=== PATIENT | male | born 1965 | race Caucasian/White ===

== ENCOUNTER 2022-05-06 10:23 | Emergency (ER) | payer OTHER, SELFPAY ==
[2022-05-06 11:35] VITALS: BP 178/85; PULSE 71; RESP 18; TEMP 36.6; O2SAT 96; BMI 33.5
--- NOTE | 2022-05-06 11:49 | DI.RAD.S_ITS ---
PROCEDURE: XR ANKLE RT MIN 3V INDICATIONS: trip/twist/pop TECHNIQUE: 3 views of the ankle were acquired. COMPARISON: None. FINDINGS: Bones: No fractures or dislocations. Ankle mortise is normally aligned. No suspicious bony lesions. Soft tissues: No tibiotalar joint effusion. Achilles tendon appears normal. Lateral soft tissue swelling IMPRESSION: Soft tissue swelling without fracture or foreign body Approved by: Montez Pope M.D. on 05/06/2022 at 11:33
[2022-05-06] MEDS: ACETAMINOPHEN 325 MG TABLET 650 MG PO (14:04)
[2022-05-06] MEDS: HYDROCODONE/ACET 5/325 TABLET 1 TAB PO (14:04)
[2022-05-06] MEDS: KETOROLAC 30 MG/ML VIAL IM (14:05)
[2022-05-06 14:13] VITALS: BP 162/76; PULSE 71; RESP 18; O2SAT 97
--- NOTE | 2022-05-06 14:16 | ED_ITS ---
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 Denies any history of surgeries to this, denies any weakness but states it is painful to walk on. He is able to bear weight but states it is painful. States that he took 2 tabs of something prior to coming in but does not what it was. Denies history of diabetes, gout, denies any open wound, denies any sensation changes. Patient did not hit his head but states that he did fall down the ground. He endorses hearing a pop on the lateral aspect of his ankle but denies any point tenderness complains of generalized lateral tenderness he denies any pain, can flex and extend his knee without any complaint, nontender to palpation Related Data Home Medications Medication Instructions Recorded Confirmed ASPIRIN (Aspir-Low) 81 mg PO QDAY ##0 07/28/12 09/26/18 Previous Rx's Medication Instructions Recorded triamcinolone acetonide 0.5 % 1 applic topical TID #15 grams 01/18/22 topical ointment diclofenac sodium 1 % topical gel 2 g topical QID #100 grams 05/06/22 hydrocodone 5 mg-acetaminophen 325 1 tab PO BID PRN pain #10 tabs 05/06/22 mg tablet Allergies Allergy/AdvReac Type Severity Reaction Status Date / Time No Known Drug Allergies Allergy Verified 09/26/18 09:09 Review of Systems <MERI Brandon - Last Filed: 05/06/22 14:25> Review of Systems ROS Unobtainable: All systems reviewed & are unremarkable except as noted in HPI and below Patient History <MERI Brandon Last Filed: 05/06/22 14:25> Social History Smoking Status: Never smoker Smoking Status: Never smoker Exam <MERI Brandon - Last Filed: 05/06/22 14:25> Narrative Exam Narrative: Reviewed vitals signs and nursing notes. General: cooperative, comfortable, in no acute distress, well groomed MSK: moves all extremities, neurovascularly intact, no weakness, normal tone, edema surrounding the lateral malleolus of the right ankle, no tenderness over bilateral malleoli, tenderness over ATFL and CFL, without tenderness over Achilles tendon, dorsiflexion and plantar extension intact without deficit, PT, DP pulses are 2+, no open wound, no bony pain with axial load, negative Jefferson test, Patient was fitted in a walking boot, given crutches, he was able to ambulate without difficulty Skin: brisk capillary refill, without pallor or erythema Neuro: normal speech and cognition, A&O x3, clear speech Psych: mental status is grossly normal, congruent mood, normal affect, pleasant and cooperative Initial Vital Signs Initial Vital Signs: Vital Signs Temperature 97.9 F 05/06/22 11:35 Pulse Rate 71 05/06/22 11:35 Respiratory Rate 18 05/06/22 11:35 Blood Pressure 178/85 H 05/06/22 11:35 Pulse Oximetry 96 05/06/22 11:35 Oxygen Delivery Method 05/06/22 11:35 <Rosalia Ham MD - Last Filed: 05/06/22 18:56> Initial Vital Signs Initial Vital Signs: Vital Signs Temperature 97.9 F 05/06/22 11:35 Pulse Rate 71 05/06/22 11:35 Respiratory Rate 18 05/06/22 11:35 Blood Pressure 178/85 H 05/06/22 11:35 Pulse Oximetry 96 05/06/22 11:35 Oxygen Delivery Method 05/06/22 11:35 Course <MERI Brandon - Last Filed: 05/06/22 14:25> Orders Ordered: ED Orders 05/06/22 11:49 XR ankle RT min 3V Stat Discontinued Medications Acetaminophen (Acetaminophen 325 Mg Tablet) 650 mg PO NOW ONE Stop: 05/06/22 13:48 Last Admin: 05/06/22 14:04 Dose: 650 mg Documented By: ROSANGELA Hydrocodone Bitart/Acetaminophen (Hydrocodone/Acet 5/325 Tablet) 1 tab PO NOW ONE Stop: 05/06/22 13:48 Last Admin: 05/06/22 14:04 Dose: 1 tab Documented By: ROSANGELA Ketorolac Tromethamine (Ketorolac 30 Mg/Ml Vial) 30 mg IM NOW ONE Stop: 05/06/22 13:48 Last Admin: 05/06/22 14:05 Dose: 30 mg Documented By: ROSANGELA Vital Signs Vital signs: Vital Signs - 8 hr 05/06/22 11:35 05/06/22 14:13 Temperature 97.9 F Pulse Rate 71 71 Respiratory Rate 18 18 Blood Pressure 178/85 H 162/76 H Pulse Oximetry 96 97 Oxygen Delivery Method Room Air Room Air <Rosalia Ham MD - Last Filed: 05/06/22 18:56> Orders Ordered: ED Orders 05/06/22 11:49 XR ankle RT min 3V Stat Discontinued Medications Acetaminophen (Acetaminophen 325 Mg Tablet) 650 mg PO NOW ONE Stop: 05/06/22 13:48 Last Admin: 05/06/22 14:04 Dose: 650 mg Documented By: ROSANGELA Hydrocodone Bitart/Acetaminophen (Hydrocodone/Acet 5/325 Tablet) 1 tab PO NOW ONE Stop: 05/06/22 13:48 Last Admin: 05/06/22 14:04 Dose: 1 tab Documented By: ROSANGELA Ketorolac Tromethamine (Ketorolac 30 Mg/Ml Vial) 30 mg IM NOW ONE Stop: 05/06/22 13:48 Last Admin: 05/06/22 14:05 Dose: 30 mg Documented By: ROSANGELA Vital Signs Vital signs: Vital Signs - 8 hr 05/06/22 11:35 05/06/22 14:13 Temperature 97.9 F Pulse Rate 71 71 Respiratory Rate 18 18 Blood Pressure 178/85 H 162/76 H Pulse Oximetry 96 97 Oxygen Delivery Method Room Air Room Air MDM - Extremity Injury (Lower) <MERI Brandon - Last Filed: 05/06/22 14:25> Imaging Data Extremity x-ray #1: Radiologist's Impression: PROCEDURE:? XR ANKLE RT MIN 3V ? INDICATIONS:? trip/twist/pop ? TECHNIQUE:? 3 views of the ankle were acquired.? ? COMPARISON:? None. ? FINDINGS:? ? Bones:? No fractures or dislocations.? Ankle mortise is normally aligned.? No suspicious bony lesions.? ? Soft tissues:? No tibiotalar joint effusion.? Achilles tendon appears normal.? Lateral soft tissue swelling ? ? IMPRESSION:? ? Soft tissue swelling without fracture or foreign body ? Approved by: Montez Pope M.D. on 05/06/2022 at 11:33? [facility] Narrative Medical decision making narrative: This is a 49-year-old male who works for the [employer] and presents emergency department after he was walking on flat ground surface when his right ankle went into a hole he had eversion of his left ankle and now has edema, pain on the lateral aspect of his right ankle. Denies any history of surgeries to this ankle in the past. Differential diagnoses include, but are not limited to: Ligamental sprain, strain, ankle fracture, avulsion fracture, proximal fibular fracture, arthritis, calcaneal fracture, Achilles tendinitis I performed a preliminary independent interpretation of the following imaging studies: Right ankle x-ray no obvious fracture or malalignment Course of Care: Saw patient and evaluated, he has edema and ecchymosis over the lateral ankle, negative Jefferson test, without malleolar pain bilaterally, full range of motion and sensation intact and only limited due to pain, neurovascular ly intact, ordered ankle boot, re evaluated x-ray, ordered pain medication and set up follow-up plan Decision rules/scores evaluated: [place] ankle rules Patient's symptoms improved over duration of stay with above-stated therapies. MIPS: This encounter doesn't have any diagnosis associated with MIPS criteria. Social determinants of health that may impact treatment or disposition: none This is most likely a lateral ankle sprain, patient understands to follow-up with his PCP for referral to physical therapy, advanced imaging is needed, or may follow-up at [facility]. He was fitted in a walking boot, given crutches, was able to tolerate ambulation. He was given a work because he states he is unable to perform his duties at this time, [id number]. Patient is appropriate and amenable to discharge home. Vital signs are stable on repeat examination is unremarkable. Patient has been informed of results. Patient has been given strict return to ER precautions for any new or worsening symptoms. Patient understands to follow up closely with outpatient providers as instructed. Patient understands plan and agrees to discharge home. All questions and concerns answered at this time. Vital Signs: I, the ED provider, reviewed the patient?s vital signs, past medical records and encounters if available, and nursing notes. I have spoken with the patient/family and discussed today?s findings whom verbalize understanding. Counseling was provided regarding the diagnosis and prognosis, and specific details were provided for the plan of care. Questions are addressed and there is agreement with the plan and for follow-up. Patient is appropriate for outpatient management. Portions of this chart have been created with [employer] voice recognition software. Occasional wrong word or sound alike substitutions may have occurred due to the inherent limitations of this software. I, MERI Aparicio, personally performed the services described in the documentation, and it accurately records my words and actions. I collaborated with the ED attending physician for LELO level 2, 3, and some level 4s as needed Electronically signed by: MERI Aparicio Discharge Plan Departure Patient Disposition: Home Clinical Impression: Ankle sprain and strain, Work related injury Fall Qualifiers: Encounter type: initial encounter Qualified Code(s): W19.XXXA - Unspecified fall, initial encounter Instructions: Ankle Sprain Activity Restrictions/Additional Instructions: *You have been diagnosed with a sprain of the ligaments on the lateral aspect of your right ankle. Please use ibuprofen 800 mg with Tylenol 650 mg every 8 hours with food and water, take hydrocodone in addition to this for severe pain, avoid constipation. Please elevate this as much as possible, the more swollen it is, it tends to become more painful. Avoid bearing weight as much as possible and use the crutches with a boot. Follow-up with [facility] for clearance to return to work or your primary care provider for a physical therapy referral, ongoing pain, another examination, or advanced imaging as needed. [id number]. X-ray does not show any swelling within ankle joint, avulsion fracture, or fracture of the larger bones. Joint space appears normal and this is most likely a bad sprain. Please ice this frequently, elevated as much as possible, follow-up for return to work timing. Clayton Gaviria, DO at sports medicine Can book appointments online *What to do: *Please continue to take your regular medications as directed. [x ] New medication prescriptions sent to your pharmacy: [[facility]] [ ] New medication written as a paper prescription [ ] No new medications given *Please follow up with your primary care provider in 2-3 days, call for an appointment. Let them know you were seen in the Emergency Department and that we asked that you be seen for follow-up. We will electronically transmit a record of today's note if your PCP is in our system *If you do not have a primary care provider please contact [phone] to establish care with one of the [facility] primary care providers. *Return to Emergency Department if you should have any new, worsening, or concerning symptoms, such as [fever greater than 101F, chills, worsening pain, persistent vomiting or other bothersome symptoms]. Prescriptions: New hydrocodone-acetaminophen 5-325 mg tablet 1 tab PO BID PRN (Reason: pain) Qty: 10 0RF diclofenac sodium 1 % gel 2 g topical QID Qty: 100 0RF Rx Instructions: Applied to ankle 4 times a day No Action triamcinolone acetonide 0.5 % ointment 1 applic topical TID Qty: 15 0RF ASPIRIN (Aspir-Low) 81 mg PO QDAY Qty: 0 Referrals: [facility] [Provider Group] Miscellaneous,[facility] [Primary Care Provider] - Stand Alone Forms: Patient Portal/API, Work Release Note <Rosalia Ham MD - Last Filed: 05/06/22 18:56> [facility] I was immediately available in the department for consultation throughout this patient's visit. I agree with documentation as above. Rosalia Ham MD
--- NOTE | 2022-05-06 14:22 | PC.NURSE ---
patient assessment completed by provider Brandi JEREZ, this nurse in agreement.
== END 2022-05-06 14:31 | disposition home or self-care (01) ==
PROVIDERS: Emergency Provider Nurse Practitioner Critical Care Medicine
DX: S93.402A Sprain of unspecified ligament of left ankle, initial encounter (principal); S96.912A Strain of unspecified muscle and tendon at ankle and foot level, left foot, initial encounter; X50.1XXA Overexertion from prolonged static or awkward postures, initial encounter; Y99.0 Civilian activity done for income or pay
CPT/HCPCS: 73610; 96372; 99283; 99284; J1885

== ENCOUNTER 2023-02-24 04:33 | Emergency (ER) | payer OTHER, SELFPAY ==
[2023-02-24 04:42] VITALS: BP 189/86; PULSE 54; RESP 18; TEMP 36.2; O2SAT 97; BMI 30.7
--- NOTE | 2023-02-24 04:42 | ED.GENADULT ---
HPI - General Adult General Chief complaint: Back Pain/Injury Stated complaint: BACK BLOWN Time Seen by Provider: 02/24/23 04:39 Source: patient Mode of arrival: Ambulatory Limitations: no limitations History of Present Illness HPI narrative: 58-year-old male who a couple days ago while at work lifted up a 5 gal bucket of a substance and since then has had right-sided lower back/buttock discomfort. He has had discomfort in his back in the past but that was many years ago. He stated that he got a medication that tapered over several days which sounds like a steroid. He thought that this has helped him in the past. He is not having any fevers or urinary symptoms. He was going to contact his primary doctor in the next week for follow-up not think that he can make it that long. He has been doing anti-inflammatories. Related Data Home Medications Medication Instructions Recorded Confirmed ASPIRIN (Aspir-Low) 81 mg PO QDAY ##0 07/28/12 09/26/18 Previous Rx's Medication Instructions Recorded triamcinolone acetonide 0.5 % 1 applic topical TID #15 grams 01/18/22 topical ointment diclofenac sodium 1 % topical gel 2 g topical QID #100 grams 05/06/22 hydrocodone 5 mg-acetaminophen 325 1 tab PO BID PRN pain #10 tabs 05/06/22 mg tablet cyclobenzaprine 10 mg tablet 10 mg PO TID PRN muscle spasm #21 02/24/23 tabs methylprednisolone 4 mg tablets in See Rx Instructions PO .COMPLEX 02/24/23 a dose pack (Medrol (Bsuter)) #21 ea tramadol 50 mg tablet 50 mg PO Q8H PRN pain #12 tabs 02/24/23 Allergies Allergy/AdvReac Type Severity Reaction Status Date / Time No Known Drug Allergies Allergy Verified 09/26/18 09:09 Review of Systems Constitutional Constitutional: Reports system reviewed and no additional complaints, except as documented Musculoskeletal Musculoskeletal: Reports system reviewed and no additional complaints, except as documented Integumentary/Breasts Skin/Breast: Reports system reviewed and no additional complaints, except as documented Neurologic Neurologic: Reports system reviewed and no additional complaints, except as documented Patient History Social History Smoking Status: Never smoker Smoking Status: Never smoker Exam Initial Vital Signs Initial Vital Signs: Vital Signs Temperature 97.1 F L 02/24/23 04:42 Pulse Rate 54 L 02/24/23 04:42 Respiratory Rate 18 02/24/23 04:42 Blood Pressure 189/86 H 02/24/23 04:42 Pulse Oximetry 97 02/24/23 04:42 Oxygen Delivery Method Room Air 02/24/23 04:42 HENMT Head: normal to inspection and normocephalic Back/Spine/Pelvis Thoracic/Lumbar Spine: paraspinal tenderness (Right-sided lumbar region) and No lumbar spinal tenderness Skin General: no rashes or lesions noted Neuro General: patient alert and patient awake Course Vital Signs Vital signs: Vital Signs - 8 hr 02/24/23 04:42 Temperature 97.1 F L Pulse Rate 54 L Respiratory Rate 18 Blood Pressure 189/86 H Pulse Oximetry 97 Oxygen Delivery Method Room Air Medical Decision Making MDM Narrative Medical decision making narrative: Patient is ambulatory but is having quite a bit of discomfort in his right-sided paraspinal lower back. I have low suspicion for fracture. No indication for radiologic studies. I do suspect musculoskeletal etiology. It seems that a Medrol Dosepak has helped him in the past. For now we will try conservative measures and prescriptions for symptomatic treatment. Have him follow-up with his primary doctor. Discharge Plan Departure Patient Disposition: Home Clinical Impression: Lower back pain Instructions: DI for Low Back Pain Activity Restrictions/Additional Instructions: I do suspect that your back pain will improve with time. I do recommend that he try to stay as active as possible. You can try heat and light stretching and massage. The muscle relaxer and pain medication is an as-needed medication. I do recommend that you take the steroid as directed. Contact your primary doctor for a follow-up. Prescriptions: New methylprednisolone [Medrol (Buster)] 4 mg tablets,dose pack See Rx Instructions .ROUTE .COMPLEX Qty: 21 0RF Rx Instructions: orally per package directions cyclobenzaprine 10 mg tablet 10 mg PO TID PRN (Reason: muscle spasm) Qty: 21 0RF tramadol 50 mg tablet 50 mg PO Q8H PRN (Reason: pain) Qty: 12 0RF No Action triamcinolone acetonide 0.5 % ointment 1 applic topical TID Qty: 15 0RF ASPIRIN (Aspir-Low) 81 mg PO QDAY Qty: 0 hydrocodone-acetaminophen 5-325 mg tablet 1 tab PO BID PRN (Reason: pain) Qty: 10 0RF diclofenac sodium 1 % gel 2 g topical QID Qty: 100 0RF Rx Instructions: Applied to ankle 4 times a day Stand Alone Forms: Patient Portal/API
[2023-02-24] MEDS: KETOROLAC 30 MG/ML VIAL IM (04:54)
[2023-02-24] MEDS: HYDROMORPHONE 1 MG INJ IM (04:55)
[2023-02-24 05:03] VITALS: BP 165/69; PULSE 52; RESP 18; O2SAT 98
== END 2023-02-24 05:05 | disposition home or self-care (01) ==
PROVIDERS: Emergency Provider Emergency Medicine
DX: M54.50 Low back pain, unspecified (principal)
CPT/HCPCS: 96372; 99283; J1170; J1885

== ENCOUNTER → 2023-06-27 08:39 | Outpatient (CLI) | payer OTHER, SELFPAY ==
[2023-06-27 09:31] LABS: Influenza A - CEPHEID Flu A NEGATIVE (NEGATIVE); Influenza B - CEPHEID Flu B NEGATIVE (NEGATIVE); Respiratory Syncytial Virus Negative (Negative)
[2023-06-27 09:48] LABS: COVID-19 CEPHEID 4-PLEX PCR Negative (Negative)
== END ==
PROVIDERS: Visit Provider Nurse Practitioner Family
DX: R05.1 Acute cough (principal)
CPT/HCPCS: 0241U

== ENCOUNTER → 2023-06-27 08:50 | Outpatient (CLI) | payer OTHER, SELFPAY ==
--- NOTE | 2023-06-27 08:54 | DI.RAD.S_ITS ---
PROCEDURE: XR CHEST 2V INDICATIONS: Cough TECHNIQUE: 2 views of the chest were acquired. COMPARISON: formerly [facility], CHEST 2 VIEW, 08/06/2012, 14:25. formerly [facility], CHEST 2 VIEW, 02/15/2010, 15:15. FINDINGS: Surgical changes and devices: None. Lungs and pleura: Lungs are clear. No pleural effusions or pneumothorax. Mediastinum: Mediastinal contours are normal. Heart size is normal. Bones and chest wall: No suspicious bony abnormalities. Soft tissues appear unremarkable. IMPRESSION: No acute cardiopulmonary abnormality is seen. Dictated by: Car Newman M.D. on 06/27/2023 at 12:50 Approved by: Car Newman M.D. on 06/27/2023 at 12:50
== END ==
LOC: RAD 08:53
PROVIDERS: PCP Family Medicine; Referring Provider Nurse Practitioner Family; Visit Provider Nurse Practitioner Family
DX: R05.1 Acute cough (principal)
CPT/HCPCS: 0241U; 71046

== ENCOUNTER → 2023-07-03 12:04 | Outpatient (CLI) | payer OTHER, SELFPAY ==
[2023-07-03 12:49] LABS: COVID-19 CEPHEID 4-PLEX PCR Negative (Negative); Influenza A - CEPHEID Flu A NEGATIVE (NEGATIVE); Influenza B - CEPHEID Flu B NEGATIVE (NEGATIVE); Respiratory Syncytial Virus Negative (Negative)
== END ==
PROVIDERS: PCP Family Medicine; Visit Provider Physician Assistant
DX: R05.9 Cough, unspecified (principal)
CPT/HCPCS: 0241U

== ENCOUNTER → 2024-05-08 11:05 | Outpatient (CLI) | payer OTHER, SELFPAY | PROVIDERS: PCP Family Medicine; Visit Provider Physician Assistant | DX: T14.8XXA Other injury of unspecified body region, initial encounter (principal); L08.9 Local infection of the skin and subcutaneous tissue, unspecified | CPT/HCPCS: 87070; 87077; 87147; 87186; 87205 ==

== ENCOUNTER → 2024-05-08 12:15 | Outpatient (CLI) | payer OTHER, SELFPAY ==
--- NOTE | 2024-05-08 12:17 | DI.RAD.S_ITS ---
PROCEDURE: XR KNEE LT 3V INDICATIONS: swelling /pain TECHNIQUE: 3 views of the knee were acquired. COMPARISON: None. FINDINGS: Bones: Mild degenerative changes. No displaced fracture or dislocation. Soft tissues: Trace joint effusion. IMPRESSION: No acute radiographic abnormality. Mild degenerative changes. If there is high concern for further derangement, consider MRI evaluation. Dictated by: Aftab Mays M.D. on 05/08/2024 at 12:54 Approved by: Aftab Mays M.D. on 05/08/2024 at 12:54
== END ==
PROVIDERS: PCP Family Medicine; Referring Provider Physician Assistant; Visit Provider Physician Assistant
DX: M25.562 Pain in left knee (principal); T14.8XXA Other injury of unspecified body region, initial encounter; L08.9 Local infection of the skin and subcutaneous tissue, unspecified
CPT/HCPCS: 73562; 87070; 87077; 87147; 87186; 87205

== ENCOUNTER 2024-05-09 08:14 | Emergency (ER) | payer OTHER, SELFPAY ==
[2024-05-09 08:31] VITALS: BP 126/89; PULSE 72; RESP 15; TEMP 36.4; O2SAT 98; BMI 36.2
--- NOTE | 2024-05-09 09:28 | ED.WOUNDLAC ---
HPI - Wound/Laceration General Chief Complaint: Wound/Laceration Stated Complaint: left knee pain- cyst? Time Seen by Provider: 05/09/24 09:28 Source: patient Mode of arrival: Ambulatory History of Present Illness HPI narrative: Patient is a 59-year-old male presenting today with left knee abscess. Sounds like it has been there for just a couple of days he was seen and evaluated yesterday at walk-in clinic he had an x-ray which was negative placed on clindamycin and mupirocin. He was wanted to make sure he was treated appropriately he is still having some pain in his left thumb. Denies fever or chills it continues to drain. Related Data Previous Rx's Medication Instructions Recorded clindamycin HCl 300 mg capsule 300 mg PO TID 7 days #21 caps 05/08/24 mupirocin 2 % topical ointment 1 applic topical DAILY #22 grams 05/08/24 Allergies Allergy/AdvReac Type Severity Reaction Status Date / Time No Known Drug Allergies Allergy Verified 05/09/24 08:36 Patient History Social History Smoking Status: Former smoker Smoking Status: Former smoker Exam Initial Vital Signs Initial Vital Signs: Vital Signs Temperature 97.5 F L 05/09/24 08:31 Pulse Rate 72 05/09/24 08:31 Respiratory Rate 15 05/09/24 08:31 Blood Pressure 126/89 05/09/24 08:31 Pulse Oximetry 98 05/09/24 08:31 Oxygen Delivery Method Room Air 05/09/24 08:31 GENERAL: Well-appearing, well-nourished and in no acute distress. CARDIOVASCULAR: peripheral pulses in tact, cap refill <2 sec RESPIRATORY: No respiratory distress, speaks in full sentences without difficulty EXTREMITIES: Normal range of motion, no clubbing or edema. Neurovascularly intact Left knee full range of motion NEUROLOGICAL: Cranial nerves II through XII grossly intact. Normal gait and speech. SKIN: Left leg superior the patella 2 x 3 cm abscess minimal fluctuation no induration no streaking there is a area that it is draining. No obvious swelling Course Vital Signs Vital signs: Vital Signs - 8 hr 05/09/24 08:31 Temperature 97.5 F L Pulse Rate 72 Respiratory Rate 15 Blood Pressure 126/89 Pulse Oximetry 98 Oxygen Delivery Method Room Air MDM - Wound/Laceration MDM Narrative Medical decision making narrative: 59-year-old male presents today with abscess. No real fluctuation but it is draining at this time I do not think I and D indicated he is appropriately placed on clindamycin and mupirocin urine. It is already draining he is able to squeeze some out. He was concerned because of pain. But he has no evidence of sepsis there is no concern for joint involvement at this time. X-ray was negative from yesterday culture from yesterday does show Gram-positive cocci, currently on clindamycin which is appropriate. Discharge Plan Departure Patient Disposition: Home Clinical Impression: Abscess of skin Instructions: DI for Skin Abscess Activity Restrictions/Additional Instructions: *You have been diagnosed with skin abscess *What to do: At this time I would continue warm compresses or heating pad to help encourage drainage. You may continue to squeeze and drain *Continue to take medications as directed Continue antibiotics as prescribed May take Tylenol Motrin as needed for pain *Follow up with your primary care provider in 2-3 days or call [phone] *Return to ER if you should have increasing swelling increasing pain fever inability to walk or any new, worsening or concerning symptoms Prescriptions: No Action clindamycin HCl 300 mg capsule 300 mg PO TID 7 Days Qty: 21 0RF mupirocin 2 % ointment 1 applic topical DAILY Qty: 22 0RF Referrals: Clayton Gaviria DO [Primary Care Provider] - Stand Alone Forms: Patient Portal/API/Survey
[2024-05-09 10:05] VITALS: BP 132/67; PULSE 79; RESP 17; O2SAT 98
== END 2024-05-09 10:05 | disposition home or self-care (01) ==
PROVIDERS: Emergency Provider Emergency Medicine; PCP Family Medicine
DX: L02.416 Cutaneous abscess of left lower limb (principal)
CPT/HCPCS: 99281